=== PATIENT | male | born 1960 | race African-American/Black ===

== ENCOUNTER 2016-08-30 01:06 | Emergency (ER) | payer MEDICARE ==
[~2016-08-30] VITALS: Ht 185.4 cm; Wt 77.1 kg
[2016-08-30 01:20] VITALS: BP 158/93
[2016-08-30] MEDS ORDERED: FLUT1DIS5 IH (01:35)
[2016-08-30] MEDS ORDERED: BENA40TA15 PO (01:35)
[2016-08-30] MEDS ORDERED: HYDR59LO TP (01:41)
--- NOTE | 2016-08-30 01:50 | PHYS DOC ---
Past Medical History Past Medical History: COPD Past Surgical History: No Surgical History Alcohol Use: None Drug Use: None Adult General Chief Complaint Chief Complaint: SKIN RASH/ABSCESS HPI HPI 56-year-old male with a history of emphysema presenting to the emergency department today with a rash over his right forearm, neck, and right lower extremity. The rash is been present for 2-3 days. It is red. It is mildly pruritic. It is not painful. Denies any recent initiation of antibiotics or medications. He denies any recent outdoor activity. He reports this happened approximately 5-10 years ago. When it does happen it happens in the summer time only. No alleviating or exacerbating factors present. It is associated with blistering. Review of systems is negative for chest pain shortness of breath oral involvement headache fevers chills nausea vomiting. All other review of systems is negative unless otherwise noted in history of present illness. Pertinent physical exam findings: The patient has a maculopapular rash over the right dorsal aspect of the forearm. Also on the anterior portion of the patient' s right knee. It also involves the patient's right side of his neck. There is no oral involvement. No sloughing of the oral mucosa. There are also bulla present. ED course: 56-year-old male presenting to the emergency department with a maculopapular rash including bulla formation with serous fluid. No evidence of oral involvement. Not suggestive to the in or Lin-Jericho syndrome. Differential diagnosis included pemphigus and pemphigoid. Also neoplastic pemphigus. It is possible that this is a contact dermatitis with bulla. I considered sweet syndrome, less likely. I will refer the patient to a television producer. I recommended using a topical corticosteroid cream and follow up with television producer. The patient has a dermatology appointment on Thursday. They were to return if their symptoms worsened or if they were concerned for any reason. Aavm-rh-hsin discharge instructions and return precautions were given. Patient's questions were answered to their satisfaction. Patient is comfortable plan. Review of Systems Review of Systems SEE ABOVE. Physical Exam Physical Exam Constitutional: Well developed, well nourished, no acute distress, non-toxic appearance. [] HENT: Normocephalic, atraumatic, bilateral external ears normal, oropharynx moist, no oral exudates, nose normal. Eyes: PERRLA, EOMI, conjunctiva normal, no discharge. Neck: Normal range of motion, no tenderness, supple, no stridor. [] Cardiovascular:Heart rate regular rhythm, no murmur [] Lungs & Thorax: Bilateral breath sounds clear to auscultation Abdomen: Bowel sounds normal, soft, no tenderness, no masses, no pulsatile masses. [] Skin: see above Back: No tenderness, no CVA tenderness. [] Extremities: No tenderness, no cyanosis, no clubbing, ROM intact, no edema. [] Neurologic: Alert and oriented X 3, normal motor function, normal sensory function, no focal deficits noted. Psychologic: Affect normal, judgement normal, mood normal. [] EKG EKG [] Radiology/Procedures Radiology/Procedures [] Course & Med Decision Making Course & Med Decision Making Pertinent Labs and Imaging studies reviewed. (See chart for details) [] Dragon Disclaimer Dragon Disclaimer This electronic medical record was generated, in whole or in part, using a voice recognition dictation system. Departure Departure Impression: Primary Impression: Rash and nonspecific skin eruption Additional Impressions: Rash Bullae Disposition: HOME, SELF-CARE Condition: STABLE Referrals: SAMI BOYLE MD (PCP) Patient Instructions: Rash Additional Instructions: Thank you for allowing us to participate in your care today. Followup with dermatology on Thursday. If you do not have a primary care provider you can ask for a list of our primary care providers. Return to the emergency department you have any new or concerning findings. This should be evaluated by the primary care physician and any necessary consulting services for continued management within a few days after discharge. Return to emergency room if you have any new or concerning symptoms including but not limited to fever, chills, nausea, vomiting, intractable pain, any new rashes, chest pain, shortness of air, uncontrolled bleeding, difficulty breathing, and/or vision loss. Scripts Hydrocortisone (HYDROCORTISONE) 59 Ml Lotion 1 CRISTIAN TP BID for 7 Days, #60 ML Prov: OK CUNNINGHAM MD 08/30/16 Problem Qualifiers OK CUNNINGHAM MD Aug 30, 2016 01:50
[2016-08-30] MEDS ORDERED: HYDROCORTISONE 1% TOPICAL OINTMENT 30GM TUBE. TP ONE (02:00)
== END 2016-08-30 02:31 | disposition home or self-care (01) ==
LOC: ER 01:06
DX: R21 Rash and other nonspecific skin eruption (principal); J43.9 Emphysema, unspecified
CPT/HCPCS: 99284

== ENCOUNTER 2017-06-16 11:57 | Inpatient (IN) | payer MEDICARE ==
[2017-06-16 12:24] LABS: ADD MAN DIFF? NO
[2017-06-16] MEDS: methylPREDNISolone SOD SUCC PF 125 MG/2 ML VIAL. IV (12:29)
[2017-06-16] MEDS: ASPIRIN CHEWABLE 81 MG TABLET. PO (12:30)
[2017-06-16] MEDS: IV NORMAL SALINE 1000ML BAG 1,000 ML IV ×2 (12:30→14:45)
[2017-06-16] MEDS: 0.9 % SODIUM CHLORIDE 10 ML DISP.SYRIN. IV (12:30)
[2017-06-16 12:34] LABS: BASO % 0 % (0-3); EOS # 0.1 x10^3/uL (0.0-0.7); EOS % 1 % (0-3); HEMATOCRIT 41.4 % (39.0-53.0); HEMOGLOBIN 13.8 g/dL (13.0-17.5); LYMPH # 1.6 x10^3/uL (1.0-4.8); LYMPH % 22 % (24-48); MEAN CORPUSCULAR HEMOGLOBIN 30 pg (25-35); MEAN CORPUSCULAR HGB CONC 33 g/dL (31-37); MEAN CORPUSCULAR VOLUME 91 fL (79-100); MONO # 0.8 x10^3/uL (0.0-1.1); MONO % 11 % (0-9); NEUT # 4.8 x10^3uL (1.8-7.7); NEUT % 66 % (31-73); PLATELET COUNT 228 x10^3/uL (140-400); RED BLOOD COUNT 4.55 x10^6/uL (4.30-5.70); RED CELL DISTRIBUTION WIDTH 14.3 % (11.5-14.5); WHITE BLOOD COUNT 7.3 x10^3/uL (4.0-11.0)
[2017-06-16] MEDS: IPRATRPIUM/ALBUTEROL 0.5/2.5MG 3 ML NEBU. NEB ×3 (12:42→20:40)
[2017-06-16 12:44] LABS: BLOOD UREA NITROGEN 13 mg/dL (8-26); CALCIUM 10.1 mg/dL (8.5-10.1); CARBON DIOXIDE > 45 mmol/L (21-32); CHLORIDE 91 mmol/L (98-107); CREATININE 0.8 mg/dL (0.7-1.3); GFR 120.1; GLUCOSE 110 mg/dL (70-99); POTASSIUM 4.1 mmol/L (3.5-5.1); SODIUM 138 mmol/L (136-145)
[2017-06-16 12:52] LABS: ALBUMIN 3.8 g/dL (3.4-5.0); ALK PHOS 72 U/L (46-116); ALT (SGPT) 22 U/L (16-63); AST (SGOT) 14 U/L (15-37); DIRECT BILIRUBIN 0.1 mg/dL (0.0-0.2); LIPASE 81 U/L (73-393); MAGNESIUM 1.9 mg/dL (1.8-2.4); TOTAL BILIRUBIN 0.4 mg/dL (0.2-1.0); TOTAL PROTEIN 8.1 g/dL (6.4-8.2)
[2017-06-16 12:54] LABS: TROPONINI < 0.017 ng/mL (0.000-0.055)
[2017-06-16 12:56] LABS: NT-PRO BNP 12 pg/mL (0-124)
[2017-06-16 12:56] LABS: CKMB MASS 1.3 ng/mL (0.0-3.6); CREATINE KINASE 49 U/L (39-308)
[2017-06-16 12:57] LABS: THYROID STIM HORMONE (TSH) 0.556 uIU/mL (0.358-3.74)
[2017-06-16] MEDS ORDERED: ACETAMINOPHEN 325 MG TABLET. PO (14:30)
[2017-06-16] MEDS ORDERED: fentaNYL PF VIAL 100 MCG/2 ML VIAL IV (14:30)
[2017-06-16] MEDS ORDERED: ONDANSETRON PF 4 MG/2 ML VIAL. IV (14:30)
[2017-06-16 15:02] LABS: BILIRUBIN,URINE NEGATIVE (NEG); CLARITY,URINE CLEAR; COLOR,URINE YELLOW; GLUCOSE,URINE NEGATIVE (NEG); NITRITE,URINE NEGATIVE (NEG); PROTEIN,URINE NEGATIVE (NEG-TRACE); UROBILINOGEN,URINE 0.2 mg/dL (0.2 mg/dL)
[2017-06-16 15:12] LABS: BACTERIA,URINE 0 /HPF (0-FEW); RBC,URINE 0 /HPF (0-2); WBC,URINE 0 /HPF (0-4)
[2017-06-16 15:13] LABS: LACTIC ACID 1.4 mmol/L (0.4-2.0)
[2017-06-16 21:26] LABS: TROPONINI < 0.017 ng/mL (0.000-0.055)
[2017-06-17] MEDS: IPRATRPIUM/ALBUTEROL 0.5/2.5MG 3 ML NEBU. NEB ×5 (07:09→20:07)
[2017-06-17] MEDS: methylPREDNISolone SOD SUCC PF 40 MG/ML VIAL. IV (09:00)
[2017-06-17] MEDS: IV NORMAL SALINE 1000ML BAG 1,000 ML IV (19:53)
[2017-06-17] MEDS: methylPREDNISolone SOD SUCC PF 125 MG/2 ML VIAL. IV (20:31)
[2017-06-18] MEDS: IPRATRPIUM/ALBUTEROL 0.5/2.5MG 3 ML NEBU. NEB ×4 (07:13→20:55)
[2017-06-18] MEDS: ENOXAPARIN 40 MG/0.4 ML SYRINGE. SQ (08:14)
[2017-06-18] MEDS: methylPREDNISolone SOD SUCC PF 125 MG/2 ML VIAL. IV ×2 (08:14→16:32)
[2017-06-18 10:08] LABS: BASE EXCESS ABG 17 mmol/L (-3-3); HCO3 ABG 49 mmol/L (21-28); PCO2 ABG 103 mmHg (35-46); PO2 ABG 88 mmHg (75-108)
[2017-06-18 10:09] LABS: FIO2 ABG 32%; O2 DELIVERY DEVICE 3L NC; SAT O2 ABG 96 % (92-99)
[2017-06-18] MEDS: diphenhydrAMINE HCL 25 MG CAPSULE PO (21:57)
[2017-06-19] MEDS: methylPREDNISolone SOD SUCC PF 125 MG/2 ML VIAL. IV (06:00)
[2017-06-19] MEDS: IPRATRPIUM/ALBUTEROL 0.5/2.5MG 3 ML NEBU. NEB ×4 (07:29→19:52)
[2017-06-19] MEDS: ENOXAPARIN 40 MG/0.4 ML SYRINGE. SQ (08:40)
[2017-06-19] MEDS ORDERED: TEMAZEPAM 15 MG CAPSULE PO (08:45)
[2017-06-19] MEDS: ROFLUMILAST 500 MCG TABLET. PO (09:00)
[2017-06-19] MEDS: ALBUTEROL SULFATE 2.5 MG/3 ML NEBU. NEB (21:17)
[2017-06-19] MEDS: BUDESONIDE 0.5 MG/2 ML NEBU. NEB (21:18)
[2017-06-19] MEDS: diphenhydrAMINE HCL 25 MG CAPSULE PO (22:36)
[2017-06-20] MEDS: BUDESONIDE 0.5 MG/2 ML NEBU. NEB ×2 (07:42→19:29)
[2017-06-20] MEDS: IPRATRPIUM/ALBUTEROL 0.5/2.5MG 3 ML NEBU. NEB ×4 (07:42→19:29)
[2017-06-20] MEDS ORDERED: predniSONE 20 MG TABLET PO (08:00)
[2017-06-20] MEDS: methylPREDNISolone SOD SUCC PF 125 MG/2 ML VIAL. IV (08:58)
[2017-06-20] MEDS: ROFLUMILAST 500 MCG TABLET. PO (08:58)
[2017-06-20] MEDS: ENOXAPARIN 40 MG/0.4 ML SYRINGE. SQ (08:59)
[2017-06-20] MEDS: LORazepam 0.5 MG TABLET PO (11:05)
[2017-06-20 15:15] LABS: BASE EXCESS ABG 14 mmol/L (-3-3); HCO3 ABG 46 mmol/L (21-28); PH ABG 7.29 (7.35-7.45); PO2 ABG 76 mmHg (75-108); SAT O2 ABG 94 % (92-99)
[2017-06-20 15:24] LABS: PCO2 ABG 97 mmHg (35-46)
[2017-06-20] MEDS ORDERED: LORazepam 1 MG TABLET PO (15:45)
[2017-06-20] MEDS ORDERED: MORPHINE SULFATE 4 MG/ML DISP.SYRIN. IM (18:15)
[2017-06-20] MEDS: MORPHINE SULFATE 4 MG/ML DISP.SYRIN. IV ×2 (18:28→19:38)
[2017-06-20] MEDS ORDERED: IV NORMAL SALINE 500ML BAG 500 ML IV (19:30)
[2017-06-20] MEDS ORDERED: ATROPINE 0.5 MG/5 ML DISP.SYRINGE. IV (19:30)
[2017-06-20] MEDS: DEXMEDETOMIDINE 200 MCG in IV NORMAL SALINE 50ML 48 ML IV (20:29)
[2017-06-21] MEDS: DEXMEDETOMIDINE 200 MCG in IV NORMAL SALINE 50ML 48 ML IV ×3 (00:46→09:20)
[2017-06-21] MEDS: MORPHINE SULFATE 4 MG/ML DISP.SYRIN. IV ×3 (03:25→10:03)
[2017-06-21 08:26] LABS: BLOOD UREA NITROGEN 29 mg/dL (8-26); CALCIUM 9.5 mg/dL (8.5-10.1); CARBON DIOXIDE > 45 mmol/L (21-32); CHLORIDE 93 mmol/L (98-107); GFR 92.9; GLUCOSE 105 mg/dL (70-99); SODIUM 138 mmol/L (136-145)
[2017-06-21 08:28] LABS: ANION GAP 0 (6-14); POTASSIUM 5.6 mmol/L (3.5-5.1)
[2017-06-21] MEDS: methylPREDNISolone SOD SUCC PF 125 MG/2 ML VIAL. IV (08:32)
[2017-06-21] MEDS: ENOXAPARIN 40 MG/0.4 ML SYRINGE. SQ (08:34)
[2017-06-21] MEDS: ROFLUMILAST 500 MCG TABLET. PO (09:00)
[2017-06-21] MEDS: IPRATRPIUM/ALBUTEROL 0.5/2.5MG 3 ML NEBU. NEB ×4 (09:01→19:28)
[2017-06-21] MEDS: BUDESONIDE 0.5 MG/2 ML NEBU. NEB ×2 (09:01→19:28)
[2017-06-21 09:08] LABS: BASE EXCESS ABG 18 mmol/L (-3-3); HCO3 ABG 52 mmol/L (21-28); PH ABG 7.23 (7.35-7.45); PO2 ABG 134 mmHg (75-108); SAT O2 ABG 98 % (92-99)
[2017-06-21 09:11] LABS: FIO2 ABG 40; PCO2 ABG 126 mmHg (35-46)
[2017-06-21] MEDS ORDERED: ETOMIDATE 20 MG/10 ML VIAL. IV ×2 (10:00)
[2017-06-21] MEDS ORDERED: PROPOFOL 100 ML IV (10:00)
[2017-06-21] MEDS ORDERED: VECURONIUM BOLUS 10 MG VIAL. IV (10:06)
[2017-06-21] MEDS: VECURONIUM BOLUS 10 MG VIAL. IV (10:36)
[2017-06-21] MEDS: PROPOFOL 100 ML IV (10:38)
[2017-06-21] MEDS ORDERED: NOREPINEPHRIN PREMIX 250 ML IV (11:15)
[2017-06-21 11:30] LABS: BASE EXCESS ABG 15 mmol/L (-3-3); HCO3 ABG 45 mmol/L (21-28); PH ABG 7.35 (7.35-7.45); PO2 ABG 410 mmHg (75-108); SAT O2 ABG 100 % (92-99)
[2017-06-21 11:31] LABS: FIO2 ABG 80; PCO2 ABG 82 mmHg (35-46)
[2017-06-21] MEDS: IV DEXTROSE 5 %-0.45 % NACL 1,000 ML IV (16:28)
[2017-06-21] MEDS: MIDAZOLAM 100MG/100ML PREMIX 100 ML IV (20:03)
[2017-06-22 04:13] LABS: ADD MAN DIFF? NO
[2017-06-22 04:24] LABS: BASO % 0 % (0-3); EOS % 0 % (0-3); HEMATOCRIT 35.2 % (39.0-53.0); HEMOGLOBIN 11.6 g/dL (13.0-17.5); LYMPH # 0.9 x10^3/uL (1.0-4.8); LYMPH % 16 % (24-48); MEAN CORPUSCULAR HEMOGLOBIN 30 pg (25-35); MEAN CORPUSCULAR HGB CONC 33 g/dL (31-37); MEAN CORPUSCULAR VOLUME 92 fL (79-100); MONO # 0.6 x10^3/uL (0.0-1.1); MONO % 12 % (0-9); NEUT % 72 % (31-73); PLATELET COUNT 194 x10^3/uL (140-400); RED BLOOD COUNT 3.85 x10^6/uL (4.30-5.70); WHITE BLOOD COUNT 5.5 x10^3/uL (4.0-11.0)
[2017-06-22 04:59] LABS: ANION GAP 0 (6-14); BLOOD UREA NITROGEN 30 mg/dL (8-26); CALCIUM 8.5 mg/dL (8.5-10.1); CARBON DIOXIDE 40 mmol/L (21-32); CHLORIDE 97 mmol/L (98-107); CREATININE 0.9 mg/dL (0.7-1.3); GFR 104.9; GLUCOSE 173 mg/dL (70-99); POTASSIUM 4.5 mmol/L (3.5-5.1); SODIUM 137 mmol/L (136-145)
[2017-06-22] MEDS: IV DEXTROSE 5 %-0.45 % NACL 1,000 ML IV ×2 (05:42→20:20)
[2017-06-22] MEDS: BUDESONIDE 0.5 MG/2 ML NEBU. NEB ×2 (07:23→19:49)
[2017-06-22] MEDS: IPRATRPIUM/ALBUTEROL 0.5/2.5MG 3 ML NEBU. NEB ×4 (07:23→19:49)
[2017-06-22 07:38] LABS: BASE EXCESS ABG 13 mmol/L (-3-3); HCO3 ABG 42 mmol/L (21-28); PH ABG 7.38 (7.35-7.45); PO2 ABG 113 mmHg (75-108); SAT O2 ABG 98 % (92-99)
[2017-06-22 07:43] LABS: FIO2 ABG 35; PCO2 ABG 72 mmHg (35-46)
[2017-06-22 08:12] LABS: POC GLUCOSE 133 mg/dL (70-99)
[2017-06-22] MEDS: CHLORHEXIDINE 0.12% 15 ML MOUTHWASH. SWSP ×2 (08:42→22:13)
[2017-06-22] MEDS: MORPHINE SULFATE 4 MG/ML DISP.SYRIN. IV ×2 (08:45→16:39)
[2017-06-22] MEDS: ENOXAPARIN 40 MG/0.4 ML SYRINGE. SQ (08:46)
[2017-06-22] MEDS: methylPREDNISolone SOD SUCC PF 125 MG/2 ML VIAL. IV (08:47)
[2017-06-22 17:37] LABS: BASE EXCESS ABG 17 mmol/L (-3-3); HCO3 ABG 47 mmol/L (21-28); PH ABG 7.35 (7.35-7.45); PO2 ABG 97 mmHg (75-108); SAT O2 ABG 97 % (92-99)
[2017-06-22 17:40] LABS: FIO2 ABG 35; PCO2 ABG 87 mmHg (35-46)
[2017-06-22] MEDS: PROPOFOL 100 ML IV (22:31)
[2017-06-23] MEDS: PROPOFOL 100 ML IV (05:20)
[2017-06-23 06:18] LABS: POC GLUCOSE 117 mg/dL (70-99)
[2017-06-23] MEDS: IV DEXTROSE 5 %-0.45 % NACL 1,000 ML IV ×2 (07:00→23:30)
[2017-06-23] MEDS: IPRATRPIUM/ALBUTEROL 0.5/2.5MG 3 ML NEBU. NEB ×4 (07:08→20:02)
[2017-06-23] MEDS: BUDESONIDE 0.5 MG/2 ML NEBU. NEB ×2 (07:08→20:02)
[2017-06-23 07:39] LABS: BASE EXCESS ABG 14 mmol/L (-3-3); HCO3 ABG 42 mmol/L (21-28); PH ABG 7.37 (7.35-7.45); PO2 ABG 112 mmHg (75-108); SAT O2 ABG 98 % (92-99)
[2017-06-23 08:52] LABS: FIO2 ABG 35; PCO2 ABG 75 mmHg (35-46)
[2017-06-23] MEDS: CHLORHEXIDINE 0.12% 15 ML MOUTHWASH. SWSP ×2 (09:00→21:00)
[2017-06-23 09:16] LABS: BASE EXCESS ABG 15 mmol/L (-3-3); HCO3 ABG 43 mmol/L (21-28); PH ABG 7.41 (7.35-7.45); PO2 ABG 120 mmHg (75-108); SAT O2 ABG 98 % (92-99)
[2017-06-23 09:26] LABS: FIO2 ABG 35; PCO2 ABG 70 mmHg (35-46)
[2017-06-23] MEDS: ENOXAPARIN 40 MG/0.4 ML SYRINGE. SQ (09:33)
[2017-06-23] MEDS: methylPREDNISolone SOD SUCC PF 125 MG/2 ML VIAL. IV (09:33)
[2017-06-23] MEDS: MORPHINE SULFATE 4 MG/ML DISP.SYRIN. IV ×2 (09:34→23:27)
[2017-06-23 11:31] LABS: BASE EXCESS ABG 16 mmol/L (-3-3); HCO3 ABG 45 mmol/L (21-28); PH ABG 7.36 (7.35-7.45); PO2 ABG 63 mmHg (75-108); SAT O2 ABG 90 % (92-99)
[2017-06-23 11:32] LABS: PCO2 ABG 82 mmHg (35-46)
[2017-06-23 11:33] LABS: FIO2 ABG 28
[2017-06-23] MEDS: AMINO AC 3%/ELECTROLYTE/GLYCER 1,000 ML IV (14:00)
[2017-06-23] MEDS: methylPREDNISolone SOD SUCC PF 40 MG/ML VIAL. IV (21:00)
[2017-06-24] MEDS: AMINO AC 3%/ELECTROLYTE/GLYCER 1,000 ML IV ×2 (02:22→13:49)
[2017-06-24] MEDS: IPRATRPIUM/ALBUTEROL 0.5/2.5MG 3 ML NEBU. NEB ×4 (08:02→19:20)
[2017-06-24] MEDS: BUDESONIDE 0.5 MG/2 ML NEBU. NEB ×2 (08:02→19:20)
[2017-06-24] MEDS: CHLORHEXIDINE 0.12% 15 ML MOUTHWASH. SWSP (09:00)
[2017-06-24] MEDS: MORPHINE SULFATE 4 MG/ML DISP.SYRIN. IV (09:39)
[2017-06-24] MEDS: HALOPERIDOL LACTATE 5 MG/ML VIAL. IVP (09:39)
[2017-06-24] MEDS: IV DEXTROSE 5 %-0.45 % NACL 1,000 ML IV ×2 (09:40→13:26)
[2017-06-24] MEDS: methylPREDNISolone SOD SUCC PF 40 MG/ML VIAL. IV (10:05)
[2017-06-24] MEDS: ENOXAPARIN 40 MG/0.4 ML SYRINGE. SQ (10:05)
[2017-06-24] MEDS ORDERED: ROCURONIUM 50 MG/5 ML VIAL. (12:00)
[2017-06-24 15:57] LABS: BASE EXCESS ABG 15 mmol/L (-3-3); HCO3 ABG 49 mmol/L (21-28); PO2 ABG 93 mmHg (75-108); SAT O2 ABG 95 % (92-99)
[2017-06-24] MEDS: PROPOFOL 100 ML IV ×2 (16:30→22:30)
[2017-06-24 17:20] LABS: BASE EXCESS ABG 13 mmol/L (-3-3); HCO3 ABG 42 mmol/L (21-28); PH ABG 7.35 (7.35-7.45); PO2 ABG 113 mmHg (75-108); SAT O2 ABG 98 % (92-99)
[2017-06-24 17:22] LABS: FIO2 ABG 30; PCO2 ABG 77 mmHg (35-46)
[2017-06-24 17:26] LABS: PCO2 ABG 130 mmHg (35-46)
[2017-06-24 17:27] LABS: FIO2 ABG 45
[2017-06-24] MEDS ORDERED: NALOXONE 0.4 MG/ML VIAL. IV (19:00)
[2017-06-24] MEDS: CHLORHEXIDINE 0.12% 15 ML MOUTHWASH. MM (20:58)
[2017-06-25] MEDS: AMINO AC 3%/ELECTROLYTE/GLYCER 1,000 ML IV ×2 (02:54→14:00)
[2017-06-25] MEDS: BUDESONIDE 0.5 MG/2 ML NEBU. NEB ×2 (07:24→20:10)
[2017-06-25] MEDS: IPRATRPIUM/ALBUTEROL 0.5/2.5MG 3 ML NEBU. NEB ×4 (07:24→20:10)
[2017-06-25 07:42] LABS: BASE EXCESS ABG 12 mmol/L (-3-3); HCO3 ABG 38 mmol/L (21-28); PH ABG 7.41 (7.35-7.45); PO2 ABG 92 mmHg (75-108); SAT O2 ABG 97 % (92-99)
[2017-06-25 08:05] LABS: FIO2 ABG 30; PCO2 ABG 62 mmHg (35-46)
[2017-06-25] MEDS: IV DEXTROSE 5 %-0.45 % NACL 1,000 ML IV (08:18)
[2017-06-25] MEDS: PROPOFOL 100 ML IV ×3 (08:18→22:16)
[2017-06-25] MEDS: ENOXAPARIN 40 MG/0.4 ML SYRINGE. SQ (08:41)
[2017-06-25] MEDS: CHLORHEXIDINE 0.12% 15 ML MOUTHWASH. MM ×2 (08:41→22:17)
[2017-06-25 13:53] LABS: ADD MAN DIFF? NO
[2017-06-25 13:56] LABS: BASO % 1 % (0-3); EOS # 0.1 x10^3/uL (0.0-0.7); EOS % 1 % (0-3); HEMATOCRIT 36.8 % (39.0-53.0); HEMOGLOBIN 12.2 g/dL (13.0-17.5); LYMPH # 1.5 x10^3/uL (1.0-4.8); LYMPH % 19 % (24-48); MEAN CORPUSCULAR HEMOGLOBIN 30 pg (25-35); MEAN CORPUSCULAR HGB CONC 33 g/dL (31-37); MEAN CORPUSCULAR VOLUME 92 fL (79-100); MONO % 13 % (0-9); NEUT # 5.4 x10^3uL (1.8-7.7); NEUT % 67 % (31-73); PLATELET COUNT 217 x10^3/uL (140-400); RED BLOOD COUNT 4.02 x10^6/uL (4.30-5.70); RED CELL DISTRIBUTION WIDTH 14.5 % (11.5-14.5)
[2017-06-25] MEDS: FAMOTIDINE 20 MG/2 ML VIAL IVP ×2 (14:02→22:17)
[2017-06-25 14:08] LABS: BLOOD UREA NITROGEN 20 mg/dL (8-26); CALCIUM 8.4 mg/dL (8.5-10.1); CARBON DIOXIDE 43 mmol/L (21-32); CHLORIDE 98 mmol/L (98-107); CREATININE 0.7 mg/dL (0.7-1.3); GFR 140.2; GLUCOSE 120 mg/dL (70-99); POTASSIUM 4.7 mmol/L (3.5-5.1); SODIUM 140 mmol/L (136-145)
[2017-06-25] MEDS: MIDAZOLAM 100MG/100ML PREMIX 100 ML IV (20:28)
[2017-06-25 22:08] LABS: PROTHROMBIN TIME PATIENT 13.1 SEC (11.7-14.0)
[2017-06-26] MEDS: PROPOFOL 100 ML IV ×4 (04:47→19:34)
[2017-06-26] MEDS ORDERED: HYDROmorphone 2 MG/ML VIAL IV (07:00)
[2017-06-26] MEDS ORDERED: PROCHLORPERAZINE 10 MG/2 ML VIAL. IV (07:00)
[2017-06-26] MEDS: IV RINGERS,LACTATED 1000ML 1,000 ML IV (07:00)
[2017-06-26] MEDS ORDERED: LIDOCAINE 1% PF 2 ML VIAL. ID (07:00)
[2017-06-26] MEDS ORDERED: fentaNYL PF VIAL 100 MCG/2 ML VIAL IV ×2 (07:00)
[2017-06-26] MEDS ORDERED: MORPHINE SULFATE 4 MG/ML DISP.SYRIN. IV (07:00)
[2017-06-26] MEDS: IPRATRPIUM/ALBUTEROL 0.5/2.5MG 3 ML NEBU. NEB ×4 (07:32→20:02)
[2017-06-26] MEDS: BUDESONIDE 0.5 MG/2 ML NEBU. NEB ×2 (07:32→20:02)
[2017-06-26] MEDS: MIDAZOLAM 100MG/100ML PREMIX 100 ML IV (07:39)
[2017-06-26 07:55] LABS: BASE EXCESS ABG 13 mmol/L (-3-3); HCO3 ABG 40 mmol/L (21-28); PH ABG 7.41 (7.35-7.45); PO2 ABG 88 mmHg (75-108); SAT O2 ABG 96 % (92-99)
[2017-06-26] MEDS ORDERED: LIDOCAINE WITH 8.4% SOD BICARB 3 ML DISP.SYRIN. (08:00)
[2017-06-26 08:17] LABS: FIO2 ABG 30; PCO2 ABG 66 mmHg (35-46)
[2017-06-26] MEDS: AMINO AC 3%/ELECTROLYTE/GLYCER 1,000 ML IV ×2 (08:23→22:34)
[2017-06-26] MEDS: FAMOTIDINE 20 MG/2 ML VIAL IVP ×2 (08:24→22:35)
[2017-06-26] MEDS: CHLORHEXIDINE 0.12% 15 ML MOUTHWASH. MM ×2 (08:40→22:34)
[2017-06-26 12:40] LABS: POC GLUCOSE 110 mg/dL (70-99)
[2017-06-26 14:25] LABS: MRSA BY PCR Negative (Negative)
[2017-06-26 16:59] LABS: POC GLUCOSE 87 mg/dL (70-99)
[2017-06-26] MEDS: IV NORMAL SALINE 1000ML BAG 1,000 ML IV (22:35)
[2017-06-27] MEDS: PROPOFOL 100 ML IV ×2 (03:53→12:55)
[2017-06-27] MEDS: MIDAZOLAM 100MG/100ML PREMIX 100 ML IV (05:58)
[2017-06-27] MEDS: AMINO AC 3%/ELECTROLYTE/GLYCER 1,000 ML IV ×2 (08:01→18:16)
[2017-06-27] MEDS: CHLORHEXIDINE 0.12% 15 ML MOUTHWASH. MM ×2 (08:02→22:06)
[2017-06-27] MEDS: FAMOTIDINE 20 MG/2 ML VIAL IVP ×2 (08:07→22:08)
[2017-06-27] MEDS: IPRATRPIUM/ALBUTEROL 0.5/2.5MG 3 ML NEBU. NEB ×4 (08:30→19:58)
[2017-06-27] MEDS: BUDESONIDE 0.5 MG/2 ML NEBU. NEB ×2 (08:30→19:58)
[2017-06-27 09:04] LABS: BASE EXCESS ABG 12 mmol/L (-3-3); HCO3 ABG 39 mmol/L (21-28); PCO2 ABG 65 mmHg (35-46); PH ABG 7.39 (7.35-7.45); PO2 ABG 102 mmHg (75-108); SAT O2 ABG 97 % (92-99)
[2017-06-27 09:05] LABS: FIO2 ABG 30%
[2017-06-27 10:35] LABS: ADD MAN DIFF? NO
[2017-06-27 10:42] LABS: BASO % 0 % (0-3); EOS # 0.2 x10^3/uL (0.0-0.7); EOS % 3 % (0-3); HEMATOCRIT 34.3 % (39.0-53.0); HEMOGLOBIN 11.3 g/dL (13.0-17.5); LYMPH # 1.2 x10^3/uL (1.0-4.8); LYMPH % 18 % (24-48); MEAN CORPUSCULAR HEMOGLOBIN 30 pg (25-35); MEAN CORPUSCULAR HGB CONC 33 g/dL (31-37); MEAN CORPUSCULAR VOLUME 91 fL (79-100); MONO # 0.6 x10^3/uL (0.0-1.1); MONO % 9 % (0-9); NEUT # 4.9 x10^3uL (1.8-7.7); NEUT % 71 % (31-73); PLATELET COUNT 166 x10^3/uL (140-400); RED BLOOD COUNT 3.75 x10^6/uL (4.30-5.70); RED CELL DISTRIBUTION WIDTH 14.3 % (11.5-14.5); WHITE BLOOD COUNT 6.9 x10^3/uL (4.0-11.0)
[2017-06-27 10:53] LABS: ANION GAP 3 (6-14); BLOOD UREA NITROGEN 29 mg/dL (8-26); BUN/CREATININE RATIO 41 (6-20); CALCIUM 8.5 mg/dL (8.5-10.1); CARBON DIOXIDE 39 mmol/L (21-32); CHLORIDE 99 mmol/L (98-107); CREATININE 0.7 mg/dL (0.7-1.3); GFR 140.2; GLUCOSE 101 mg/dL (70-99); POTASSIUM 4.7 mmol/L (3.5-5.1); SODIUM 141 mmol/L (136-145)
[2017-06-27 10:59] LABS: ALBUMIN 2.4 g/dL (3.4-5.0); ALBUMIN/GLOBULIN RATIO 0.8 (1.0-1.7); ALK PHOS 69 U/L (46-116); ALT (SGPT) 79 U/L (16-63); AST (SGOT) 19 U/L (15-37); TOTAL BILIRUBIN 0.3 mg/dL (0.2-1.0); TOTAL PROTEIN 5.3 g/dL (6.4-8.2)
[2017-06-28] MEDS: AMINO AC 3%/ELECTROLYTE/GLYCER 1,000 ML IV (01:41)
[2017-06-28] MEDS: PROPOFOL 100 ML IV ×3 (01:42→17:28)
[2017-06-28] MEDS: BUDESONIDE 0.5 MG/2 ML NEBU. NEB ×2 (06:55→20:25)
[2017-06-28] MEDS: IPRATRPIUM/ALBUTEROL 0.5/2.5MG 3 ML NEBU. NEB ×4 (06:55→20:25)
[2017-06-28 07:22] LABS: ADD MAN DIFF? NO
[2017-06-28 07:37] LABS: BASO % 0 % (0-3); EOS # 0.2 x10^3/uL (0.0-0.7); EOS % 2 % (0-3); HEMATOCRIT 35.5 % (39.0-53.0); HEMOGLOBIN 11.8 g/dL (13.0-17.5); LYMPH # 1.2 x10^3/uL (1.0-4.8); LYMPH % 14 % (24-48); MEAN CORPUSCULAR HEMOGLOBIN 30 pg (25-35); MEAN CORPUSCULAR HGB CONC 33 g/dL (31-37); MEAN CORPUSCULAR VOLUME 91 fL (79-100); MONO # 0.7 x10^3/uL (0.0-1.1); MONO % 8 % (0-9); NEUT # 6.9 x10^3uL (1.8-7.7); NEUT % 76 % (31-73); PLATELET COUNT 197 x10^3/uL (140-400); RED BLOOD COUNT 3.91 x10^6/uL (4.30-5.70); RED CELL DISTRIBUTION WIDTH 14.2 % (11.5-14.5); WHITE BLOOD COUNT 9.1 x10^3/uL (4.0-11.0)
[2017-06-28 07:52] LABS: ALBUMIN 2.4 g/dL (3.4-5.0); ALBUMIN/GLOBULIN RATIO 0.8 (1.0-1.7); ALK PHOS 79 U/L (46-116); ALT (SGPT) 63 U/L (16-63); ANION GAP 1 (6-14); AST (SGOT) 18 U/L (15-37); BLOOD UREA NITROGEN 29 mg/dL (8-26); BUN/CREATININE RATIO 41 (6-20); CALCIUM 8.5 mg/dL (8.5-10.1); CARBON DIOXIDE 38 mmol/L (21-32); CHLORIDE 97 mmol/L (98-107); CREATININE 0.7 mg/dL (0.7-1.3); GFR 140.2; GLUCOSE 98 mg/dL (70-99); SODIUM 136 mmol/L (136-145); TOTAL BILIRUBIN 0.3 mg/dL (0.2-1.0); TOTAL PROTEIN 5.6 g/dL (6.4-8.2)
[2017-06-28 07:55] LABS: POTASSIUM 5.6 mmol/L (3.5-5.1)
[2017-06-28 08:22] LABS: BASE EXCESS ABG 9 mmol/L (-3-3); HCO3 ABG 37 mmol/L (21-28); PH ABG 7.36 (7.35-7.45); PO2 ABG 89 mmHg (75-108); SAT O2 ABG 96 % (92-99)
[2017-06-28 08:23] LABS: FIO2 ABG 30; PCO2 ABG 67 mmHg (35-46)
[2017-06-28] MEDS: FAMOTIDINE 20 MG/2 ML VIAL IVP ×2 (08:33→21:09)
[2017-06-28] MEDS: CHLORHEXIDINE 0.12% 15 ML MOUTHWASH. MM ×2 (08:33→21:09)
[2017-06-28 16:42] LABS: ANION GAP 2 (6-14); BLOOD UREA NITROGEN 26 mg/dL (8-26); CALCIUM 8.2 mg/dL (8.5-10.1); CARBON DIOXIDE 37 mmol/L (21-32); CHLORIDE 98 mmol/L (98-107); CREATININE 0.7 mg/dL (0.7-1.3); GFR 140.2; GLUCOSE 100 mg/dL (70-99); POTASSIUM 5.8 mmol/L (3.5-5.1); SODIUM 137 mmol/L (136-145)
[2017-06-28] MEDS: IV NORMAL SALINE 1000ML BAG 1,000 ML IV (21:11)
[2017-06-29] MEDS: IV NORMAL SALINE 1000ML BAG 1,000 ML IV ×4 (01:37→21:43)
[2017-06-29] MEDS: IV NORMAL SALINE 250ML 250 ML IV (05:15)
[2017-06-29] MEDS: PROPOFOL 100 ML IV ×2 (05:29→13:22)
[2017-06-29 05:45] LABS: HEMOGLOBIN 10.5 g/dL (13.0-17.5); MEAN CORPUSCULAR HEMOGLOBIN 30 pg (25-35); MEAN CORPUSCULAR HGB CONC 33 g/dL (31-37); MEAN CORPUSCULAR VOLUME 92 fL (79-100); PLATELET COUNT 181 x10^3/uL (140-400); RED BLOOD COUNT 3.48 x10^6/uL (4.30-5.70); RED CELL DISTRIBUTION WIDTH 14.7 % (11.5-14.5); WHITE BLOOD COUNT 7.3 x10^3/uL (4.0-11.0)
[2017-06-29 06:02] LABS: BLOOD UREA NITROGEN 27 mg/dL (8-26); CALCIUM 8.9 mg/dL (8.5-10.1); CARBON DIOXIDE 38 mmol/L (21-32); CHLORIDE 99 mmol/L (98-107); CREATININE 0.8 mg/dL (0.7-1.3); GFR 120.1; GLUCOSE 100 mg/dL (70-99); POTASSIUM 5.2 mmol/L (3.5-5.1); SODIUM 135 mmol/L (136-145)
[2017-06-29] MEDS: IPRATRPIUM/ALBUTEROL 0.5/2.5MG 3 ML NEBU. NEB ×4 (08:04→19:21)
[2017-06-29] MEDS: BUDESONIDE 0.5 MG/2 ML NEBU. NEB ×2 (08:04→19:21)
[2017-06-29] MEDS: MIDAZOLAM 100MG/100ML PREMIX 100 ML IV ×2 (08:05→23:53)
[2017-06-29 08:40] LABS: BASE EXCESS ABG 6 mmol/L (-3-3); HCO3 ABG 34 mmol/L (21-28); PH ABG 7.33 (7.35-7.45); PO2 ABG 91 mmHg (75-108); SAT O2 ABG 96 % (92-99)
[2017-06-29 09:26] LABS: PCO2 ABG 67 mmHg (35-46)
[2017-06-29 09:27] LABS: FIO2 ABG 30
[2017-06-29] MEDS: FAMOTIDINE 20 MG/2 ML VIAL IVP ×2 (09:40→21:44)
[2017-06-29] MEDS: CHLORHEXIDINE 0.12% 15 ML MOUTHWASH. MM ×2 (09:41→21:44)
[2017-06-29 10:57] LABS: POC GLUCOSE 87 mg/dL (70-99)
[2017-06-29 11:04] LABS: HEMATOCRIT 29.8 % (39.0-53.0); HEMOGLOBIN 9.9 g/dL (13.0-17.5); MEAN CORPUSCULAR HEMOGLOBIN 30 pg (25-35); MEAN CORPUSCULAR HGB CONC 33 g/dL (31-37); MEAN CORPUSCULAR VOLUME 91 fL (79-100); PLATELET COUNT 168 x10^3/uL (140-400); RED BLOOD COUNT 3.27 x10^6/uL (4.30-5.70); RED CELL DISTRIBUTION WIDTH 14.2 % (11.5-14.5); WHITE BLOOD COUNT 6.9 x10^3/uL (4.0-11.0)
[2017-06-29] MEDS: BISACODYL 10 MG SUPP.RECT. PR (14:58)
[2017-06-29 17:50] LABS: POC GLUCOSE 104 mg/dL (70-99)
[2017-06-29 18:09] LABS: HEMOGLOBIN 10.6 g/dL (13.0-17.5); MEAN CORPUSCULAR HEMOGLOBIN 30 pg (25-35); MEAN CORPUSCULAR HGB CONC 33 g/dL (31-37); MEAN CORPUSCULAR VOLUME 91 fL (79-100); PLATELET COUNT 191 x10^3/uL (140-400); RED BLOOD COUNT 3.51 x10^6/uL (4.30-5.70); RED CELL DISTRIBUTION WIDTH 14.1 % (11.5-14.5); WHITE BLOOD COUNT 8.5 x10^3/uL (4.0-11.0)
[2017-06-29] MEDS: VECURONIUM BOLUS 10 MG VIAL. IV ×2 (21:38→23:54)
[2017-06-30 00:10] LABS: POC GLUCOSE 77 mg/dL (70-99)
[2017-06-30] MEDS: VECURONIUM BOLUS 10 MG VIAL. IV (04:27)
[2017-06-30] MEDS: IV NORMAL SALINE 1000ML BAG 1,000 ML IV ×3 (05:47→17:28)
[2017-06-30 06:11] LABS: POC GLUCOSE 85 mg/dL (70-99)
[2017-06-30] MEDS ORDERED: ONDANSETRON PF 4 MG/2 ML VIAL. IV (07:00)
[2017-06-30] MEDS: IV RINGERS,LACTATED 1000ML 1,000 ML IV (07:00)
[2017-06-30] MEDS ORDERED: fentaNYL PF VIAL 100 MCG/2 ML VIAL IV ×2 (07:00)
[2017-06-30] MEDS ORDERED: PROCHLORPERAZINE 10 MG/2 ML VIAL. IV (07:00)
[2017-06-30] MEDS ORDERED: LIDOCAINE 1% PF 2 ML VIAL. ID (07:00)
[2017-06-30] MEDS ORDERED: MORPHINE SULFATE 4 MG/ML DISP.SYRIN. IV ×2 (07:00→10:30)
[2017-06-30] MEDS: IPRATRPIUM/ALBUTEROL 0.5/2.5MG 3 ML NEBU. NEB ×4 (07:22→19:24)
[2017-06-30] MEDS: BUDESONIDE 0.5 MG/2 ML NEBU. NEB ×2 (07:22→19:24)
[2017-06-30] MEDS: CHLORHEXIDINE 0.12% 15 ML MOUTHWASH. MM ×2 (08:05→21:05)
[2017-06-30 08:38] LABS: HEMATOCRIT 32.6 % (39.0-53.0); HEMOGLOBIN 10.6 g/dL (13.0-17.5); MEAN CORPUSCULAR HEMOGLOBIN 30 pg (25-35); MEAN CORPUSCULAR HGB CONC 33 g/dL (31-37); MEAN CORPUSCULAR VOLUME 92 fL (79-100); PLATELET COUNT 193 x10^3/uL (140-400); RED BLOOD COUNT 3.53 x10^6/uL (4.30-5.70); RED CELL DISTRIBUTION WIDTH 14.4 % (11.5-14.5); WHITE BLOOD COUNT 8.6 x10^3/uL (4.0-11.0)
[2017-06-30 08:39] LABS: ALBUMIN 2.1 g/dL (3.4-5.0); ALBUMIN/GLOBULIN RATIO 0.5 (1.0-1.7); ALK PHOS 116 U/L (46-116); ALT (SGPT) 42 U/L (16-63); ANION GAP 2 (6-14); AST (SGOT) 26 U/L (15-37); BLOOD UREA NITROGEN 20 mg/dL (8-26); BUN/CREATININE RATIO 29 (6-20); CALCIUM 8.8 mg/dL (8.5-10.1); CARBON DIOXIDE 37 mmol/L (21-32); CHLORIDE 100 mmol/L (98-107); CREATININE 0.7 mg/dL (0.7-1.3); GFR 140.2; GLUCOSE 100 mg/dL (70-99); SODIUM 139 mmol/L (136-145); TOTAL BILIRUBIN 0.5 mg/dL (0.2-1.0); TOTAL PROTEIN 6.2 g/dL (6.4-8.2)
[2017-06-30 08:40] LABS: POTASSIUM 5.5 mmol/L (3.5-5.1)
[2017-06-30 08:42] LABS: BASE EXCESS ABG 6 mmol/L (-3-3); HCO3 ABG 36 mmol/L (21-28); PH ABG 7.26 (7.35-7.45); PO2 ABG 66 mmHg (75-108); SAT O2 ABG 91 % (92-99)
[2017-06-30] MEDS: FAMOTIDINE 20 MG/2 ML VIAL IVP ×2 (08:44→21:05)
[2017-06-30 08:47] LABS: INR 1.2 (0.8-1.1); PROTHROMBIN TIME PATIENT 14.4 SEC (11.7-14.0)
[2017-06-30 09:00] LABS: FIO2 ABG 30; PCO2 ABG 82 mmHg (35-46)
[2017-06-30] MEDS: POLYETHYLENE GLYCOL 3350 17 GM PACKET. PO (09:12)
[2017-06-30] MEDS: ACETAMINOPHEN 650 MG/20.3 ML SOLUTION. PEG (09:12)
[2017-06-30] MEDS: BISACODYL 10 MG SUPP.RECT. PR (09:17)
[2017-06-30 09:42] LABS: LACTIC ACID 1.1 mmol/L (0.4-2.0)
[2017-06-30] MEDS ORDERED: MORPHINE SULFATE/PF 30 ML IV (10:30)
[2017-06-30] MEDS: MIDAZOLAM 100MG/100ML PREMIX 100 ML IV (11:23)
[2017-06-30] MEDS ORDERED: ROCURONIUM 50 MG/5 ML VIAL. (11:42)
[2017-06-30] MEDS ORDERED: PROPOFOL 20 ML IV (11:42)
[2017-06-30] MEDS ORDERED: ONDANSETRON PF 4 MG/2 ML VIAL. (11:42)
[2017-06-30] MEDS ORDERED: DEXAMETHASONE SOD PHOS 20 MG/5 ML VIAL. (11:42)
[2017-06-30] MEDS: ALBUMIN HUMAN 25% 100 ML IV (11:58)
[2017-06-30] MEDS ORDERED: ceFAZolin 2GM PREMIX 2 GM/50 ML BAG IV (12:00)
[2017-06-30] MEDS ORDERED: PHENYLEPHRINE 10 MG/ML VIAL. (14:10)
[2017-06-30] MEDS ORDERED: SEVOFLURANE 61 TO 120 MINUTES. IH (14:10)
[2017-06-30] MEDS: FUROSEMIDE 40 MG/4 ML VIAL. IVP (18:09)
[2017-06-30 18:13] LABS: POC GLUCOSE 78 mg/dL (70-99)
[2017-06-30 23:57] LABS: POC GLUCOSE 95 mg/dL (70-99)
[2017-07-01] MEDS: MIDAZOLAM 100MG/100ML PREMIX 100 ML IV ×2 (03:02→16:17)
[2017-07-01] MEDS: IV NORMAL SALINE 1000ML BAG 1,000 ML IV ×3 (03:19→23:19)
[2017-07-01] MEDS: BUDESONIDE 0.5 MG/2 ML NEBU. NEB ×2 (08:24→20:10)
[2017-07-01] MEDS: IPRATRPIUM/ALBUTEROL 0.5/2.5MG 3 ML NEBU. NEB ×4 (08:24→20:10)
[2017-07-01 08:27] LABS: BASE EXCESS ABG 8 mmol/L (-3-3); HCO3 ABG 35 mmol/L (21-28); PH ABG 7.36 (7.35-7.45); PO2 ABG 115 mmHg (75-108); SAT O2 ABG 98 % (92-99)
[2017-07-01] MEDS: CHLORHEXIDINE 0.12% 15 ML MOUTHWASH. MM ×2 (09:00→23:18)
[2017-07-01] MEDS: FAMOTIDINE 20 MG/2 ML VIAL IVP ×2 (10:47→23:18)
[2017-07-01] MEDS: POLYETHYLENE GLYCOL 3350 17 GM PACKET. PO (10:47)
[2017-07-01 16:45] LABS: FIO2 ABG 30; PCO2 ABG 65 mmHg (35-46)
[2017-07-02] MEDS: MIDAZOLAM 100MG/100ML PREMIX 100 ML IV ×2 (04:45→18:14)
[2017-07-02] MEDS: IPRATRPIUM/ALBUTEROL 0.5/2.5MG 3 ML NEBU. NEB ×4 (07:10→20:05)
[2017-07-02] MEDS: BUDESONIDE 0.5 MG/2 ML NEBU. NEB ×2 (07:10→20:05)
[2017-07-02] MEDS: POLYETHYLENE GLYCOL 3350 17 GM PACKET. PO (07:42)
[2017-07-02] MEDS: FAMOTIDINE 20 MG/2 ML VIAL IVP ×2 (07:43→22:27)
[2017-07-02] MEDS: IV NORMAL SALINE 1000ML BAG 1,000 ML IV ×3 (07:43→22:26)
[2017-07-02] MEDS: CHLORHEXIDINE 0.12% 15 ML MOUTHWASH. MM ×2 (07:44→22:27)
[2017-07-02 08:00] LABS: BASE EXCESS ABG 5 mmol/L (-3-3); HCO3 ABG 32 mmol/L (21-28); PH ABG 7.34 (7.35-7.45); PO2 ABG 89 mmHg (75-108); SAT O2 ABG 95 % (92-99)
[2017-07-02 08:06] LABS: ADD MAN DIFF? NO; BASO % 0 % (0-3); EOS % 0 % (0-3); HEMATOCRIT 28.3 % (39.0-53.0); HEMOGLOBIN 9.3 g/dL (13.0-17.5); LYMPH # 0.8 x10^3/uL (1.0-4.8); LYMPH % 13 % (24-48); MEAN CORPUSCULAR HEMOGLOBIN 30 pg (25-35); MEAN CORPUSCULAR HGB CONC 33 g/dL (31-37); MEAN CORPUSCULAR VOLUME 91 fL (79-100); MONO % 16 % (0-9); NEUT # 4.4 x10^3uL (1.8-7.7); NEUT % 72 % (31-73); PLATELET COUNT 201 x10^3/uL (140-400); RED BLOOD COUNT 3.11 x10^6/uL (4.30-5.70); RED CELL DISTRIBUTION WIDTH 14.7 % (11.5-14.5); WHITE BLOOD COUNT 6.2 x10^3/uL (4.0-11.0)
[2017-07-02 08:17] LABS: ANION GAP 2 (6-14); BLOOD UREA NITROGEN 33 mg/dL (8-26); CALCIUM 8.7 mg/dL (8.5-10.1); CARBON DIOXIDE 34 mmol/L (21-32); CHLORIDE 104 mmol/L (98-107); CREATININE 0.8 mg/dL (0.7-1.3); GFR 120.1; GLUCOSE 100 mg/dL (70-99); POTASSIUM 4.3 mmol/L (3.5-5.1); SODIUM 140 mmol/L (136-145)
[2017-07-02 08:49] LABS: PCO2 ABG 60 mmHg (35-46)
[2017-07-02 08:50] LABS: FIO2 ABG 30%
[2017-07-02] MEDS: FUROSEMIDE 40 MG/4 ML VIAL. IVP (13:13)
[2017-07-02] MEDS: TPN PER PHARMACY MC ×2 (13:53→13:59)
[2017-07-02] MEDS ORDERED: TOTAL PARENTERAL NUTRITION 0 ML, AMINO ACIDS 10 % 60 GM, DEXTROSE 70 % IN WATER 195 GM,... IV (22:00)
[2017-07-02] MEDS: TOTAL PARENTERAL NUTRITION IV (22:26)
[2017-07-02] MEDS: DEXTROSE 70% IV (22:26)
[2017-07-02] MEDS: AMINO ACID IV (22:26)
[2017-07-02] MEDS: [UNRECOGNIZED DRUG - OTHER] IV (22:26)
[2017-07-03] MEDS: MIDAZOLAM 100MG/100ML PREMIX 100 ML IV ×3 (04:07→22:04)
[2017-07-03 06:25] LABS: ANION GAP 0 (6-14); BLOOD UREA NITROGEN 34 mg/dL (8-26); CALCIUM 8.9 mg/dL (8.5-10.1); CARBON DIOXIDE 36 mmol/L (21-32); CHLORIDE 106 mmol/L (98-107); CREATININE 0.7 mg/dL (0.7-1.3); GFR 140.2; GLUCOSE 135 mg/dL (70-99); POTASSIUM 3.9 mmol/L (3.5-5.1); SODIUM 142 mmol/L (136-145)
[2017-07-03 06:36] LABS: PHOSPHORUS 3.6 mg/dL (2.6-4.7)
[2017-07-03 06:36] LABS: MAGNESIUM 2.4 mg/dL (1.8-2.4)
[2017-07-03] MEDS: POLYETHYLENE GLYCOL 3350 17 GM PACKET. PO (07:07)
[2017-07-03] MEDS: CHLORHEXIDINE 0.12% 15 ML MOUTHWASH. MM ×2 (07:07→21:47)
[2017-07-03] MEDS: FAMOTIDINE 20 MG/2 ML VIAL IVP ×2 (07:08→21:46)
[2017-07-03] MEDS: IV NORMAL SALINE 1000ML BAG 1,000 ML IV ×2 (07:08→21:48)
[2017-07-03] MEDS: FUROSEMIDE 40 MG/4 ML VIAL. IVP ×2 (07:08→14:31)
[2017-07-03] MEDS: HALOPERIDOL LACTATE 5 MG/ML VIAL. IVP (08:12)
[2017-07-03 08:27] LABS: BASE EXCESS ABG 6 mmol/L (-3-3); HCO3 ABG 36 mmol/L (21-28); PH ABG 7.24 (7.35-7.45); PO2 ABG 95 mmHg (75-108); SAT O2 ABG 96 % (92-99)
[2017-07-03] MEDS ORDERED: METOPROLOL TARTRATE 5 MG/5 ML VIAL. IVP (08:45)
[2017-07-03] MEDS: IPRATRPIUM/ALBUTEROL 0.5/2.5MG 3 ML NEBU. NEB ×4 (09:07→19:35)
[2017-07-03] MEDS: BUDESONIDE 0.5 MG/2 ML NEBU. NEB ×2 (09:07→19:35)
[2017-07-03] MEDS: METOPROLOL TARTRATE 5 MG/5 ML VIAL. IVP ×2 (09:12→23:05)
[2017-07-03] MEDS: TPN PER PHARMACY MC (14:10)
[2017-07-03 14:49] LABS: PCO2 ABG 87 mmHg (35-46)
[2017-07-03] MEDS: ENOXAPARIN 40 MG/0.4 ML SYRINGE. SQ (21:46)
[2017-07-03] MEDS: DEXTROSE 70% IV (21:47)
[2017-07-03] MEDS: [UNRECOGNIZED DRUG - OTHER] IV (21:47)
[2017-07-03] MEDS: AMINO ACID IV (21:47)
[2017-07-03] MEDS: TOTAL PARENTERAL NUTRITION IV (21:47)
[2017-07-04 05:57] LABS: ANION GAP 3 (6-14); BLOOD UREA NITROGEN 33 mg/dL (8-26); CALCIUM 8.4 mg/dL (8.5-10.1); CARBON DIOXIDE 36 mmol/L (21-32); CHLORIDE 107 mmol/L (98-107); CREATININE 0.7 mg/dL (0.7-1.3); GFR 140.2; GLUCOSE 147 mg/dL (70-99); MAGNESIUM 1.9 mg/dL (1.8-2.4); PHOSPHORUS 2.9 mg/dL (2.6-4.7); POTASSIUM 3.4 mmol/L (3.5-5.1); SODIUM 146 mmol/L (136-145)
[2017-07-04] MEDS: IPRATRPIUM/ALBUTEROL 0.5/2.5MG 3 ML NEBU. NEB ×4 (07:24→19:26)
[2017-07-04] MEDS: BUDESONIDE 0.5 MG/2 ML NEBU. NEB ×2 (07:24→19:26)
[2017-07-04 07:42] LABS: BASE EXCESS ABG 10 mmol/L (-3-3); HCO3 ABG 37 mmol/L (21-28); PO2 ABG 104 mmHg (75-108); SAT O2 ABG 97 % (92-99)
[2017-07-04 07:46] LABS: FIO2 ABG 35; PCO2 ABG 60 mmHg (35-46)
[2017-07-04] MEDS: CHLORHEXIDINE 0.12% 15 ML MOUTHWASH. MM ×2 (08:35→20:37)
[2017-07-04] MEDS: FUROSEMIDE 40 MG/4 ML VIAL. IVP ×2 (08:36→14:06)
[2017-07-04] MEDS: FAMOTIDINE 20 MG/2 ML VIAL IVP ×2 (08:36→20:37)
[2017-07-04] MEDS: POLYETHYLENE GLYCOL 3350 17 GM PACKET. PO (08:36)
[2017-07-04] MEDS: METOPROLOL TARTRATE 5 MG/5 ML VIAL. IVP (09:00)
[2017-07-04 12:54] LABS: POC GLUCOSE 91 mg/dL (70-99)
[2017-07-04] MEDS: TPN PER PHARMACY MC (13:10)
[2017-07-04] MEDS: MIDAZOLAM 100MG/100ML PREMIX 100 ML IV (14:06)
[2017-07-04] MEDS: ENOXAPARIN 40 MG/0.4 ML SYRINGE. SQ (20:37)
[2017-07-04] MEDS: [UNRECOGNIZED DRUG - OTHER] IV (21:59)
[2017-07-04] MEDS: DEXTROSE 70% IV (21:59)
[2017-07-04] MEDS: TOTAL PARENTERAL NUTRITION IV (21:59)
[2017-07-04] MEDS: AMINO ACID IV (21:59)
[2017-07-05 00:50] LABS: POC GLUCOSE 128 mg/dL (70-99)
[2017-07-05] MEDS: MIDAZOLAM 100MG/100ML PREMIX 100 ML IV ×2 (00:57→14:05)
[2017-07-05] MEDS: IV NORMAL SALINE 1000ML BAG 1,000 ML IV ×2 (01:02→21:59)
[2017-07-05] MEDS: METOPROLOL TARTRATE 5 MG/5 ML VIAL. IVP (04:59)
[2017-07-05 05:42] LABS: POC GLUCOSE 133 mg/dL (70-99)
[2017-07-05 05:42] LABS: POC GLUCOSE 119 mg/dL (70-99)
[2017-07-05 05:44] LABS: ANION GAP 3 (6-14); BLOOD UREA NITROGEN 34 mg/dL (8-26); CALCIUM 8.8 mg/dL (8.5-10.1); CARBON DIOXIDE 37 mmol/L (21-32); CHLORIDE 107 mmol/L (98-107); CREATININE 0.7 mg/dL (0.7-1.3); GFR 140.2; GLUCOSE 144 mg/dL (70-99); POTASSIUM 3.9 mmol/L (3.5-5.1); SODIUM 147 mmol/L (136-145)
[2017-07-05] MEDS: TPN PER PHARMACY MC ×2 (07:32→13:25)
[2017-07-05] MEDS: BUDESONIDE 0.5 MG/2 ML NEBU. NEB ×2 (08:16→19:54)
[2017-07-05] MEDS: IPRATRPIUM/ALBUTEROL 0.5/2.5MG 3 ML NEBU. NEB ×4 (08:16→19:53)
[2017-07-05] MEDS: FUROSEMIDE 40 MG/4 ML VIAL. IVP ×2 (08:42→14:05)
[2017-07-05 08:44] LABS: BASE EXCESS ABG 12 mmol/L (-3-3); HCO3 ABG 41 mmol/L (21-28); PH ABG 7.32 (7.35-7.45); PO2 ABG 70 mmHg (75-108); SAT O2 ABG 91 % (92-99)
[2017-07-05] MEDS: CHLORHEXIDINE 0.12% 15 ML MOUTHWASH. MM ×2 (08:44→22:00)
[2017-07-05] MEDS: POLYETHYLENE GLYCOL 3350 17 GM PACKET. PO (08:44)
[2017-07-05] MEDS: FAMOTIDINE 20 MG/2 ML VIAL IVP ×2 (08:44→22:00)
[2017-07-05 10:12] LABS: FIO2 ABG 30; PCO2 ABG 83 mmHg (35-46)
[2017-07-05] MEDS: ENOXAPARIN 40 MG/0.4 ML SYRINGE. SQ (22:00)
[2017-07-05] MEDS: TOTAL PARENTERAL NUTRITION IV (22:01)
[2017-07-05] MEDS: DEXTROSE 70% IV (22:01)
[2017-07-05] MEDS: [UNRECOGNIZED DRUG - OTHER] IV (22:01)
[2017-07-05] MEDS: AMINO ACID IV (22:01)
[2017-07-06] MEDS: MIDAZOLAM 100MG/100ML PREMIX 100 ML IV (03:14)
[2017-07-06] MEDS: METOPROLOL TARTRATE 5 MG/5 ML VIAL. IVP ×2 (03:14→10:02)
[2017-07-06 06:09] LABS: ADD MAN DIFF? NO
[2017-07-06 06:15] LABS: BASO % 1 % (0-3); EOS # 0.2 x10^3/uL (0.0-0.7); EOS % 4 % (0-3); HEMATOCRIT 28.3 % (39.0-53.0); HEMOGLOBIN 9.3 g/dL (13.0-17.5); LYMPH # 0.8 x10^3/uL (1.0-4.8); LYMPH % 15 % (24-48); MEAN CORPUSCULAR HEMOGLOBIN 30 pg (25-35); MEAN CORPUSCULAR HGB CONC 33 g/dL (31-37); MEAN CORPUSCULAR VOLUME 92 fL (79-100); MONO # 0.6 x10^3/uL (0.0-1.1); MONO % 12 % (0-9); NEUT # 3.9 x10^3uL (1.8-7.7); NEUT % 70 % (31-73); PLATELET COUNT 258 x10^3/uL (140-400); RED BLOOD COUNT 3.08 x10^6/uL (4.30-5.70); RED CELL DISTRIBUTION WIDTH 15.2 % (11.5-14.5); WHITE BLOOD COUNT 5.6 x10^3/uL (4.0-11.0)
[2017-07-06 06:29] LABS: TRIGLYCERIDES 136 mg/dL (0-150)
[2017-07-06 06:30] LABS: ALBUMIN 1.8 g/dL (3.4-5.0); ALBUMIN/GLOBULIN RATIO 0.4 (1.0-1.7); ALK PHOS 133 U/L (46-116); ALT (SGPT) 64 U/L (16-63); ANION GAP 3 (6-14); AST (SGOT) 39 U/L (15-37); BLOOD UREA NITROGEN 38 mg/dL (8-26); BUN/CREATININE RATIO 48 (6-20); CALCIUM 8.7 mg/dL (8.5-10.1); CARBON DIOXIDE 38 mmol/L (21-32); CHLORIDE 107 mmol/L (98-107); CREATININE 0.8 mg/dL (0.7-1.3); GFR 120.1; GLUCOSE 140 mg/dL (70-99); PHOSPHORUS 3.8 mg/dL (2.6-4.7); SODIUM 148 mmol/L (136-145); TOTAL BILIRUBIN 1.4 mg/dL (0.2-1.0)
[2017-07-06] MEDS: BUDESONIDE 0.5 MG/2 ML NEBU. NEB (08:00)
[2017-07-06] MEDS: IPRATRPIUM/ALBUTEROL 0.5/2.5MG 3 ML NEBU. NEB ×2 (08:00→12:25)
[2017-07-06 08:26] LABS: BASE EXCESS ABG 10 mmol/L (-3-3); BODY TEMP ABG 100.7 DEG; CORRECTED PCO2 ABG 63 mmHg; CORRECTED PH ABG 7.39; CORRECTED PO2 ABG 140 mmHg; HCO3 ABG 37 mmol/L (21-28); PH ABG 7.41 (7.35-7.45); PO2 ABG 132 mmHg (75-108); SAT O2 ABG 98 % (92-99)
[2017-07-06 08:39] LABS: FIO2 ABG 35; PCO2 ABG 60 mmHg (35-46)
[2017-07-06] MEDS: FUROSEMIDE 40 MG/4 ML VIAL. IVP (08:56)
[2017-07-06] MEDS: POLYETHYLENE GLYCOL 3350 17 GM PACKET. PO (08:57)
[2017-07-06] MEDS: CHLORHEXIDINE 0.12% 15 ML MOUTHWASH. MM (08:57)
[2017-07-06] MEDS: FAMOTIDINE 20 MG/2 ML VIAL IVP (08:57)
[2017-07-06 12:46] LABS: POC GLUCOSE 150 mg/dL (70-99)
== END 2017-07-06 13:00 | DRG 4 ==
LOC: 1 WEST ICU 06-20 19:06 → ER 11:57 → 5 SOUTH 14:02
PROC: 0B110F4 Bypass Trachea to Cutaneous with Tracheostomy Device, Open Approach (ICD-10-PCS; 2017-06-30 12:00)
PROC: 5A1945Z Respiratory Ventilation, 24-96 Consecutive Hours (ICD-10-PCS; principal; 2017-06-30 12:34)
PROC: 0BH17EZ Insertion of Endotracheal Airway into Trachea, Via Natural or Artificial Opening (ICD-10-PCS; 2017-06-30 12:34)
PROC: 5A1955Z Respiratory Ventilation, Greater than 96 Consecutive Hours (ICD-10-PCS; 2017-06-30 12:34)
PROC: 5A09357 Assistance with Respiratory Ventilation, Less than 24 Consecutive Hours, Continuous Positive Airway Pressure (ICD-10-PCS; 2017-06-30 12:34)
PROC: 5A09357 Assistance with Respiratory Ventilation, Less than 24 Consecutive Hours, Continuous Positive Airway Pressure (ICD-10-PCS; 2017-06-30 12:34)
PROC: 5A09357 Assistance with Respiratory Ventilation, Less than 24 Consecutive Hours, Continuous Positive Airway Pressure (ICD-10-PCS; 2017-06-30 12:34)
DX: J96.21 Acute and chronic respiratory failure with hypoxia (principal); E87.0 Hyperosmolality and hypernatremia; Z99.81 Dependence on supplemental oxygen; J44.0 Chronic obstructive pulmonary disease with (acute) lower respiratory infection; R17 Unspecified jaundice; J44.1 Chronic obstructive pulmonary disease with (acute) exacerbation; Z99.11 Dependence on respirator [ventilator] status; J96.22 Acute and chronic respiratory failure with hypercapnia; D64.9 Anemia, unspecified; F17.201 Nicotine dependence, unspecified, in remission; F41.9 Anxiety disorder, unspecified; I10 Essential (primary) hypertension; J30.2 Other seasonal allergic rhinitis; Z51.5 Encounter for palliative care
CPT/HCPCS: 36415; 36569; 36600; 71045; 71250; 74018; 80048; 80053; 80076; 81001; 82553; 82805; 82962; 83605; 83690; 83735; 83880; 84100; 84443; 84478; 84484; 85025; 85027; 85610; 86850; 86900; 86901; 87040; 87070; 87186; 87205; 87641; 93005; 94002; 94003; 94640; 94660; 94760; 99285; 99285-25; J0610; J0690; J1100; J1630; J1650; J1940; J1956; J2060; J2250; J2270; J2405; J2704; J2920; J2930; J3010; J3475; J3490; J7030; J7050; J7613; J7620; J7626; P9046; Q0163; S0028